=== PATIENT | female | born 1950 | race Hispanic/Latino ===

== ENCOUNTER → 2018-10-13 | Outpatient (CLI) | payer OTHER | END | disposition home or self-care (01) | LOC: OIH 12:48 | PROVIDERS: ATTEND Internal Medicine | DX: M16.11 Unilateral primary osteoarthritis, right hip (principal); M85.811 Other specified disorders of bone density and structure, right shoulder; M85.812 Other specified disorders of bone density and structure, left shoulder; M51.37 Other intervertebral disc degeneration, lumbosacral region | CPT/HCPCS: 73030; 73521 ==

== ENCOUNTER → 2020-01-04 | Outpatient (CLI) | payer OTHER, MEDICARE | END | disposition home or self-care (01) | LOC: RAH 09:40 | PROVIDERS: ATTEND Family Medicine | DX: K43.9 Ventral hernia without obstruction or gangrene (principal); K40.90 Unilateral inguinal hernia, without obstruction or gangrene, not specified as recurrent | CPT/HCPCS: 76700 ==

== ENCOUNTER → 2020-03-12 | Outpatient (CLI) | payer OTHER, MEDICARE | END | disposition home or self-care (01) | LOC: RAH 10:00 | PROVIDERS: ATTEND Family Medicine | DX: Z01.818 Encounter for other preprocedural examination (principal); J44.9 Chronic obstructive pulmonary disease, unspecified; R55 Syncope and collapse; I11.0 Hypertensive heart disease with heart failure; I50.9 Heart failure, unspecified; I49.9 Cardiac arrhythmia, unspecified | CPT/HCPCS: 71046; 93306; 93356 ==

== ENCOUNTER → 2020-07-14 | Outpatient (CLI) | payer OTHER, MEDICARE ==
[~2020-07-14] MED LIST: REGADENOSON 0.4 MG/5 ML PF SYG IVP SCH
== END | disposition home or self-care (01) ==
LOC: RAH 08:58
PROVIDERS: ATTEND Family Medicine
DX: I11.0 Hypertensive heart disease with heart failure (principal); I20.9 Angina pectoris, unspecified; R07.9 Chest pain, unspecified
CPT/HCPCS: 78452; 93017; 96374; A9500 ×2; J2785

== ENCOUNTER → 2020-07-21 | Outpatient (CLI) | payer OTHER, MEDICARE | END | disposition home or self-care (01) | LOC: RAH 13:45 | PROVIDERS: ATTEND Family Medicine | DX: E04.1 Nontoxic single thyroid nodule (principal) | CPT/HCPCS: 76536 ==

== ENCOUNTER → 2020-09-29 | Outpatient (CLI) | payer OTHER, MEDICARE | END | disposition home or self-care (01) | LOC: RAH 11:54 | PROVIDERS: ATTEND Family Medicine | DX: E04.1 Nontoxic single thyroid nodule (principal); N28.1 Cyst of kidney, acquired | CPT/HCPCS: 76536 ==

== ENCOUNTER → 2023-11-23 | Outpatient (CLI) | payer OTHER, MEDICARE | END | disposition home or self-care (01) | LOC: OIH 10:37 | PROVIDERS: ATTEND Family Medicine | DX: M16.11 Unilateral primary osteoarthritis, right hip (principal); M25.551 Pain in right hip; R29.6 Repeated falls | CPT/HCPCS: 73502 ==

== ENCOUNTER → 2024-01-03 | Outpatient (CLI) | payer OTHER, MEDICARE | END | disposition home or self-care (01) | LOC: RAH 11:42 | PROVIDERS: ATTEND Family Medicine | DX: M85.851 Other specified disorders of bone density and structure, right thigh (principal); M25.551 Pain in right hip; R07.82 Intercostal pain | CPT/HCPCS: 71100; 73502 ==

== ENCOUNTER → 2024-03-30 | Outpatient (CLI) | payer OTHER, MEDICARE | END | disposition home or self-care (01) | LOC: RAH 11:15 | PROVIDERS: ATTEND Family Medicine | DX: M43.8X4 Other specified deforming dorsopathies, thoracic region (principal); M43.8X6 Other specified deforming dorsopathies, lumbar region; M47.814 Spondylosis without myelopathy or radiculopathy, thoracic region; M41.84 Other forms of scoliosis, thoracic region | CPT/HCPCS: 72146 ==